=== PATIENT | male | born 1935 | race Caucasian/White ===

== ENCOUNTER 2019-08-23 10:55 | Outpatient (CLI) | payer MEDICARE, SELFPAY ==
--- NOTE | ~2019-08-23 | XR_ITS ---
EXAMINATION: XR chest 2V 08/23/2019 11:24 INDICATION: Coronary artery disease. Pacemaker implant. PROCEDURE: 2 view chest COMPARISON: 01/12/2018 FINDINGS: The lungs are clear. The cardiomediastinal silhouette is within normal limits. Status post median sternotomy for CABG. There is a prosthetic heart valve. Pacemaker leads are stable. The lungs are hyperinflated which is consistent with, but not diagnostic of chronic obstructive pulmonary dise ase. There are no pleural effusions. There is no pneumothorax suspected. IMPRESSION: 1: NO ACUTE CARDIOPULMONARY DISEASE. Reviewed, dictated and finalized at location A.
== END 2019-08-23 10:56 | disposition home or self-care (01) ==
PROVIDERS: PCP Internal Medicine; Visit Provider Internal Medicine Cardiovascular Disease
DX: I25.118 Atherosclerotic heart disease of native coronary artery with other forms of angina pectoris (principal); R06.00 Dyspnea, unspecified
CPT/HCPCS: 71046

== ENCOUNTER 2019-09-19 00:59 | Outpatient (CLI) | payer MEDICARE, SELFPAY ==
[2019-09-19 20:03] LABS: SARS-CoV-2 RNA PCR Negative
== END 2019-09-19 01:00 | disposition home or self-care (01) ==
LOC: ANHCOVIDDT 01:01
PROVIDERS: PCP Internal Medicine; Visit Provider Internal Medicine Cardiovascular Disease
DX: Z01.818 Encounter for other preprocedural examination (principal); Z11.59 Encounter for screening for other viral diseases
CPT/HCPCS: 87635; C9803; U0003

== ENCOUNTER 2019-09-21 06:58 | Day surgery (SDC) | payer MEDICARE, SELFPAY ==
[2019-09-21] VITALS (16 sets, daily range): BP systolic 121–163; BP diastolic 56–84; PULSE 50–71; RESP 8–22; TEMP 36.4–36.9; O2SAT 97–100; BMI 21.6
[2019-09-21 07:31] LABS: Basophils Percent Auto 0.5 % (0.2-1.2); Eosinophils Absolute Auto 0.2 K/mm3 (0-0.3); Eosinophils Percent Auto 2.7 % (0-4.4); Hematocrit 43.9 % (42.0-52.0); Hemoglobin 14.5 g/dL (14.0-18.0); Immature Granulocyte Absolute 0.01 K/mm3 (0.00-0.031); Immature Granulocyte Percent A 0.2 % (0-0.5); Lymphocytes Absolute Auto 1.44 K/mm3 (0.9-3.2); Lymphocytes Percent Auto 24.6 % (18.3-44.2); Mean Corpuscular Hemoglobin 30.8 pg (26-34); Mean Corpuscular Volume 93.2 fl (80-100); Mean Platelet Volume 11.1 fl (7.4-10.4); Monocytes Absolute Auto 0.5 K/mm3 (0.1-0.6); Monocytes Percent Auto 8.2 % (2.6-8.5); Neutrophils Absolute Auto 3.7 K/mm3 (1.3-6.7); Neutrophils Percent Auto 63.8 % (45.5-73.1); Platelet Count Result 161 k/mm3 (150-375); Red Blood Count 4.71 M/mm3 (4.6-6.20); Red Cell Distribution Width 12.9 % (11.5-14.5); White Blood Count 5.9 K/mm3 (4.5-10.0)
[2019-09-21 07:43] LABS: Blood Urea Nitrogen 20 mg/dL (9-20); Calcium 10.5 mg/dL (8.4-10.2); Carbon Dioxide 27 mmol/L (22-30); Chloride 101 mmol/L (98-107); Estimated CRCL calculation 71 ml/min; Estimated Glomerular Filt Rate > 60; Glucose 116 mg/dL (75-110); INR 1.1; Potassium 4.6 mmol/L (3.4-5.0); Prothrombin Time 13.9 Seconds (11.1-14.7); Sodium 137 mmol/L (137-145)
--- NOTE | 2019-09-21 08:47 | WPDHPUPDATE1 ---
History and Physical Update Update Date/Time: 09/21/19 08:47 History and Physical has been reviewed, including an updated exam of the patient. There are NO changes in the patient's condition. Risks, benefits, and alternatives have been discussed and questions answered. Patient agrees to proceed with procedure.
--- NOTE | 2019-09-21 08:47 | WPDMODSED ---
Moderate Sedation Note-Pt Data Patient Data Diagnosis: Abnormal stress test, CAD, progressive exertional dyspnea and fatigue Present Complaint: none Procedure to be performed/Plan: left heart catheterization with selective left and right coronary angiography with left ventriculography and hemodynamics and possible percutaneous intervention and stent implantation. Allergies Allergy/AdvReac Type Severity Reaction Status Date / Time atorvastatin Allergy Unknown Verified 08/26/12 13:11 lisinopril Allergy Unknown Cough Verified 01/11/18 09:56 simvastatin Allergy Unknown Verified 09/02/12 12:45 Home Medications Medication Instructions Recorded Confirmed Type losartan 25 mg tablet 25 mg PO DAILY tablet 05/18/19 09/21/19 History metformin 500 mg tablet 500 mg PO BID 05/18/19 09/21/19 History pravastatin 40 mg tablet 40 mg PO DAILY 05/18/19 09/21/19 History warfarin 7.5 mg tablet 8.5 mg PO QTUTHSU tablet 05/18/19 09/21/19 History ascorbic acid (vitamin C) 500 mg PO DAILY 09/21/19 09/21/19 History cholecalciferol (vitamin D3) 25 mcg PO DAILY 09/21/19 09/21/19 History multivitamin 1 tablet PO DAILY 09/21/19 09/21/19 History warfarin 10.75 mg PO QMWFSA 09/21/19 09/21/19 History Current Medications: Active Medications Sodium Chloride (Normal Saline Iv) 500 mls @ 100 mls/hr IV CONT .Q5H SANDRITA Sedation/Anesthesia: No previous sedation/anesthesia problems (including family history). [facility] Past Medical History Medical History CAD (coronary artery disease) Metabolic syndrome Mixed hyperlipidemia Sick sinus syndrome Surgical History Surgical History Status cardiac pacemaker Family History Family History Father Family history of coronary artery disease Mother Family history of coronary artery disease Social History Social History Smoking status: Never smoker Alcohol intake: current Mod Sed Physical Exam Physical Exam Pre Procedural Exam: Normal: Appearance, Eyes, Ears, Nose, Neck ( supple, normal range of motion), Throat ( posterior hypopharynx clear, nonerythematous), Airway ( normal anatomy, no obstruction), Lungs ( Clear to auscultation bilaterally), Heart Size, Heart Rate, Heart Rhythm, Neuro Exam, Abdomen, Liver, Kidneys and Extremities and Variation: Skin ( healed median sternotomy scar, palpable pacemaker left anterior chest wall.) Hours since solid foods: 12 Hours since liquid intake: 12 Internal Medicine - PN: Obj Da Vital Signs Vital Signs: Vital Signs - 24 hr 09/21/19 07:35 Temperature 36.9 C Pulse Rate 61 Respiratory Rate 16 Blood Pressure 152/72 H Pulse Oximetry 100 Meds/Results Medications: Active Medications Generic Name Dose Route Start Last Admin Trade Name Freq PRN Reason Stop Dose Admin Sodium Chloride 500 mls @ 100 mls/hr 09/21/19 06:05 Normal Saline Iv IV CONT .Q5H SANDRITA Labs CBC & Chem 7: 09/21/19 07:26 09/21/19 07:26 Labs: Laboratory Results - last 24 hr 09/21/19 09/21/19 09/21/19 07:26 07:26 07:26 WBC 5.9 RBC 4.71 Hgb 14.5 Hct 43.9 MCV 93.2 MCH 30.8 MCHC 33.0 RDW 12.9 Plt Count 161 MPV 11.1 H Immature Gran % (Auto) 0.2 Neut % (Auto) 63.8 Lymph % (Auto) 24.6 Ward % (Auto) 8.2 Eos % (Auto) 2.7 Baso % (Auto) 0.5 Lymph # (Auto) 1.44 Ward # (Auto) 0.5 Eos # (Auto) 0.2 Baso # (Auto) 0.0 Abs Immat Gran (auto) 0.01 Absolute Neuts (auto) 3.7 Absolute Nucleated RBC 0.0 Nucleated RBC % 0.0 PT 13.9 INR 1.1 Sodium 137 Potassium 4.6 Chloride 101 Carbon Dioxide 27 BUN 20 Creatinine 0.80 Estim Creat Clear Calc 71 Estimated GFR > 60 Glucose 116 H Calcium 10.5 H ASA Classification/Sedation
--- NOTE | 2019-09-21 08:50 | PM.PROC ---
Procedure Note - Detailed Date of procedure: 09/21/19 Pre-op diagnosis: Abnormal Stress Test, Chest Pain, Dyspnea On Exert Post-op diagnosis: same Procedure performed: left heart catheterization with selective left and right coronary angiography Description of procedure: BRIEF HISTORY OF PRESENT ILLNESS: Patient is a pleasant 83-year-old male with a history of bioprosthetic aortic valve replacement, nonobstructive CAD, sick sinus syndrome status post pacemaker with progressive fatigue, exertional dyspnea and chest pain who underwent noninvasive ischemic evaluation which did not reveal significant focal perfusion abnormality, EF 54% but significant transient ischemic dilatation at stress concerning for balanced ischemia. Due to ongoing patient concerns and stress test results he was referred for left heart catheterization for delineation of his coronary anatomy. PROCEDURES PERFORMED: 1. Left heart catheterization 2. Selective left and right coronary angiography 3. Left ventriculography and hemodynamics 4. Moderate/conscious sedation administration CATHETERS UTILIZED: Left coronary system- 5 Mexican JL4 catheter Right coronary system- 5 Mexican JR4 catheter Left ventriculography and hemodynamics- not performed PROCEDURE IN DETAIL: After verbal and written informed consent was obtained the patient, risks, benefits, and alternatives explained in detail the patient agreed to proceed with the plan of care as outlined above. The patient was subsequently brought to the cardiac catheterization lab, placed on the cardiac catheterization table, and prepped and draped in the usual sterile fashion. Utilizing approximately 10cc of 1% subcutaneous Lidocaine, the right groin was then locally anesthetized. Utilizing the modified Seldinger technique, a 5 Mexican arterial vascular access sheath was inserted in the right common femoral artery easily and without complications. Of note, initial attempt resulted in excellent backflow but inability to advance the guidewire. It was surmised we were in a side branch and as such access needle removed and manual pressure held for over 7 minutes with excellent hemostasis. Second attempt review able to advance guidewire without any resistance and successful placement of the 5 [place] arterial vascular access sheath. Selective right femoral angiography was then performed with saline contrast mix injected through the side-arm port which revealed the arteriotomy site to be just below the mid point of the femoral head well above the bifurcation. There is no evidence of dissection, high-grade stenosis, significant plaquing, or contrast hang up. excellent flow was observed in the right common femoral artery. Through this access, coronary angiography was subsequently obtained in multiple standard re-projections. Left ventriculography was not performed due to presence of known bioprosthetic aortic valve replacement. The vascular access sheath and angiographic catheters were flushed before and after catheter exchanges. At the conclusion of the diagnostic portion of the procedure, all angiographic guidewires and catheters were removed and the 5 Mexican arterial vascular access sheath was then pulled and satisfactory hemostasis was achieved using manual compression. There no complications noted at the conclusion of the diagnostic portion of the study. MODERATE SEDATION/ANESTHESIA ADMINISTRATION: Patient reports no prior problems with sedation/anesthesia. Please see pre-sedation noted for physical examination documentation. Sedation start time was 0906 and end time was 0946 for a total intra-service/procedure face-face time of 40 minutes. A total of 2 mg intravenous Versed and a total of 50 mcg intravenous Fentanyl was administered for moderate sedation. Moderate sedation was administered by qualified/certified observer Cristin Givens RN under my supervision with intra-procedure [id number] observation and management throughout the
--- NOTE | 2019-09-21 14:57 | SUR.PHASEII ---
1445-pt up to the restroom. Groin soft and non-tender, no evidence of bleeding or hematoma noted before or after rising. Resting quietly. Will continue to monitor.
--- NOTE | 2019-09-21 16:06 | SUR.PHASEII ---
1545-pt given D/C orders and instructions. Questions answered and verbalized understanding. AOx4. Groin soft and non-tender, no evidence of bleeding or hematoma noted. Strong right pedal pulse noted. PIV removed. Taken via wheelchair to waiting vehicle. No distress noted or verbalized at time of departure.
== END 2019-09-21 15:45 | disposition home or self-care (01) ==
PROVIDERS: PCP Internal Medicine; Visit Provider Internal Medicine Cardiovascular Disease
PROC: (CPT 93454; principal; 2019-09-21 08:30)
DX: I25.10 Atherosclerotic heart disease of native coronary artery without angina pectoris (principal); R94.39 Abnormal result of other cardiovascular function study; R07.9 Chest pain, unspecified; R06.09 Other forms of dyspnea; Z95.2 Presence of prosthetic heart valve; Z95.0 Presence of cardiac pacemaker; E78.2 Mixed hyperlipidemia; E88.81 Metabolic syndrome and other insulin resistance; Z79.84 Long term (current) use of oral hypoglycemic drugs; Z79.01 Long term (current) use of anticoagulants
CPT/HCPCS: 36415; 80048; 85025; 85610; 93454; C1887; C1894; J0360; J0583; J1644; J2250; J3010

== ENCOUNTER 2019-10-31 14:41 | Outpatient (CLI) | payer MEDICARE, SELFPAY ==
--- NOTE | ~2019-10-31 | CT_ITS ---
EXAMINATION: CT chest abdomen pelvis w con DATE: 10/31/2019 16:16 INDICATION: Personal history of nicotine dependence. TECHNIQUE: Computed tomography (CT) of the chest, abdomen, and pelvis was performed with 100 mL Omnip aque-350 intravenous contrast. Automated exposure control and iterative reconstruction technique were employed. The dose-length product was 586.13 mGy-cm. COMPARISON: CT abdomen and pelvis dated 09/01/2014 FINDINGS: CHEST CT: Mild emphysema at the apices. Minimal dependent atelectasis in the bilateral lower lobes. No pneumoni a, pulmonary edema or pleural effusion. Small calcified nodules in the left and right lungs consisten t with old granulomatous disease. Heart size is normal. No pericardial effusion. Postoperative change of prior median sternotomy and aortic valve repair. Thoracic aorta is normal in caliber with no diss ection. There is also a dual-lead cardiac pacemaker with lead tips at the right atrial appendage and at the apex of the right ventricle. No pathologically enlarged thoracic lymphadenopathy. There are br idging osteophytes at multiple levels in the spine, consistent with diffuse idiopathic skeletal hyper ostosis (DISH). ABDOMEN/PELVIS CT: 9 mm cyst in the right hepatic lobe. Gallbladder, pancreas and bilateral adrenal glands are normal. S plenic calcifications consistent with old granulomatous disease. No interval change in a couple subce ntimeter low-attenuation splenic lesions most likely small cysts or hemangiomas. Bilateral renal cyst s measuring up to 4.7 cm on the right and 6.7 cm on the left. Bladder is normal. There is moderate co lonic diverticulosis with a sigmoid predominance. There is no adjacent inflammatory change to suggest diverticulitis. No bowel obstruction. Postoperative change of prior prostatectomy and pelvic lymph n ode dissection. Extensive calcified calcification of the vas deferens which can be seen with diabetes . No free intraperitoneal gas or fluid. No pathologically enlarged abdominal or pelvic lymphadenopath y. L4 hemangioma. Calcified loose bodies surrounded by small amount of fluid in the left iliopsoas bu rsa. IMPRESSION: 1. Mild emphysema. No acute cardiopulmonary disease. 2. No acute intra-abdominal/pelvic process. 3. Diverticulosis. 4. Postoperative changes detailed above. Reviewed, dictated and finalized at location A.
[2019-10-31 15:58] LABS: Erythrocyte Sedimentation Rate 11 mm/hr (0-20)
[2019-10-31 16:07] LABS: Estimated Glomerular Filt Rate > 60
[2019-10-31 16:31] LABS: CRP < 0.5 mg/dL (<1.0)
[2019-10-31 16:59] LABS: Prostate Specific Antigen < 0.1 ng/mL (< OR = 4.0)
== END 2019-10-31 14:42 | disposition home or self-care (01) ==
PROVIDERS: PCP Internal Medicine; Visit Provider Internal Medicine
DX: R63.4 Abnormal weight loss (principal); Z85.46 Personal history of malignant neoplasm of prostate; J43.9 Emphysema, unspecified; K57.90 Diverticulosis of intestine, part unspecified, without perforation or abscess without bleeding
CPT/HCPCS: 36415; 71260; 74177; 84153; 85652; 86140; 87522; Q9967

== ENCOUNTER 2020-03-07 09:37 | Outpatient (CLI) | payer MEDICARE, SELFPAY ==
--- NOTE | ~2020-03-07 | US_ITS ---
EXAMINATION: US carotid duplex BI EXAM DATE: 03/07/2020 10:30 INDICATION: CAD of [place] artery of heart with stable angina pectoris. TECHNIQUE: Grayscale, color and pulsed Doppler images of the cervical carotid arteries were obtained . The degree of vessel stenosis is placed in one of the following categories: normal, <50% stenosis, 50-69% stenosis, >=70% stenosis but less than near-occlusion, near-occlusion, or occlusion. Note that percent stenosis relative to normal distal artery lumen diameter is indirectly measured from velocit y measurements as described by Andre, et al. Radiology 2003; 229:340-346. Comparison is made to prior examination from 11/27/17. FINDINGS: RIGHT SIDE: Right common carotid artery peak systolic velocity (PSV in cm/s): 68 Right bulb/internal carotid artery peak systolic velocity (PSV in cm/s): 113 Right internal carotid artery end diastolic velocity (EDV in cm/s): 26 Right ICA/CCA peak systolic ratio: 1.7 Right external carotid artery peak systolic velocity (PSV in cm/s): 87 Right vertebral artery antegrade flow: yes There is mild carotid bulb plaque. Velocity and Doppler waveforms in the common and internal carotid arteries is normal. LEFT SIDE: Left common carotid artery peak systolic velocity (PSV in cm/s): 87 Left bulb/internal carotid artery peak systolic velocity (PSV in cm/s): 67 Left internal carotid artery end diastolic velocity (EDV in cm/s): 17 Left ICA/CCA peak systolic ratio: 0.9 Left external carotid artery peak systolic velocity (PSV in cm/s): 91 Left vertebral artery antegrade flow: yes There is mild carotid bulb plaque. Velocity and Doppler waveforms in the common and internal carotid arteries is normal. IMPRESSION: 1. Less than 50 percent stenosis in the right internal carotid artery. 2. Less than 50 percent stenosis in the left internal carotid artery. > Reviewed, dictated and finalized at location B. E OPERATOR
== END 2020-03-07 09:38 | disposition home or self-care (01) ==
LOC: ANHIMG 09:43
PROVIDERS: PCP Internal Medicine; Visit Provider Internal Medicine Cardiovascular Disease
DX: I48.0 Paroxysmal atrial fibrillation (principal); I25.118 Atherosclerotic heart disease of native coronary artery with other forms of angina pectoris; I65.23 Occlusion and stenosis of bilateral carotid arteries
CPT/HCPCS: 93880

== ENCOUNTER 2020-03-23 02:09 | Outpatient (CLI) | payer MEDICARE, SELFPAY ==
[2020-03-23 17:23] LABS: SARS-CoV-2 RNA PCR Negative
== END 2020-03-23 02:10 | disposition home or self-care (01) ==
LOC: ANHCOVIDDT 02:09
PROVIDERS: PCP Internal Medicine; Visit Provider Internal Medicine Cardiovascular Disease
DX: Z01.812 Encounter for preprocedural laboratory examination (principal); Z20.822 Contact with and (suspected) exposure to COVID-19
CPT/HCPCS: C9803; U0003

== ENCOUNTER 2020-03-26 01:43 | Day surgery (SDC) | payer MEDICARE, SELFPAY ==
[2020-03-23 16:44] VITALS: BMI 22.8
[2020-03-26] VITALS (8 sets, daily range): BP systolic 138–195; BP diastolic 72–89; PULSE 62–75; RESP 13–23; TEMP 36.4–36.6; O2SAT 96–100; BMI 22.6
--- NOTE | 2020-03-26 08:45 | WPDHPUPDATE1 ---
History and Physical Update Update Date/Time: 03/26/20 0845 History and Physical has been reviewed, including an updated exam of the patient. There are NO changes in the patient's condition. Risks, benefits, and alternatives have been discussed and questions answered. Patient agrees to proceed with procedure.
--- NOTE | 2020-03-26 09:11 | P.SEDATION_ITS ---
Moderate Sedation Note-Pt Data Patient Data Diagnosis: amaurosis fugax, bioprosthetic aortic valve Present Complaint: none Procedure to be performed/Plan: Transesophageal Echocardiogram Allergies Allergy/AdvReac Type Severity Reaction Status Date / Time atorvastatin Allergy Intermediate muscle Verified 03/23/20 16:35 aches lisinopril Allergy Intermediate Cough Verified 03/23/20 16:35 simvastatin Allergy Intermediate muscle Verified 03/23/20 16:35 aches Home Medications Medication Instructions Recorded Confirmed Type pravastatin 40 mg tablet 40 mg PO DAILY 05/18/19 03/23/20 History warfarin 7.5 mg tablet 8.5 mg PO QTUTHSU tablet 05/18/19 03/23/20 History ascorbic acid (vitamin C) 500 mg PO DAILY 09/21/19 03/23/20 History cholecalciferol (vitamin D3) 25 mcg PO DAILY 09/21/19 03/23/20 History multivitamin 1 tablet PO DAILY 09/21/19 03/23/20 History warfarin 11.25 mg PO QMWFSA 09/21/19 03/23/20 History losartan 25 mg tablet 25 mg PO DAILY tablet 10/11/19 03/23/20 History metformin 500 mg tablet 1,000 mg PO BID tablet 10/11/19 03/23/20 History citalopram 10 mg tablet 10 mg PO DAILY 90 Days #90 tablet 11/07/19 03/23/20 Rx aspirin 81 mg PO DAILY 03/23/20 03/23/20 History vitamin B complex [B 1 tablet PO DAILY 03/23/20 03/23/20 History Complex-Vitamin B12] Current Medications: see list Sedation/Anesthesia: No previous sedation/anesthesia problems (including family history). [facility] [place] Past Medical History Medical History CAD (coronary artery disease) Metabolic syndrome Mixed hyperlipidemia Sick sinus syndrome Stress disorder, acute Surgical History Surgical History Status cardiac pacemaker Family History Family History Father Family history of coronary artery disease Mother Family history of coronary artery disease Social History Social History Smoking status: Never smoker Alcohol intake: current Mod Sed Physical Exam Physical Exam Pre Procedural Exam: Normal: Appearance, Eyes, Ears, Nose, Neck (supple, normal range of motion), Throat (psoterior hypopharynx clear and nonerythematous), Airway (no obstruction, normal anatomy), Lungs (CTA bilaterally), Heart Size, Heart Rate (RRR), Heart Rhythm, Neuro Exam, Abdomen, Liver, Kidneys, Extremities and Skin Hours since solid foods: 12 Hours since liquid intake: 12 Internal Medicine - PN: Obj Da Vital Signs Vital Signs: Vital Signs - 24 hr 03/26/20 07:45 03/26/20 08:45 03/26/20 08:55 Temperature 36.6 C Pulse Rate 62 67 70 Respiratory Rate 14 23 H 21 H Blood Pressure 140/75 162/79 H 166/80 H Pulse Oximetry 99 97 100 03/26/20 09:00 03/26/20 09:05 Temperature Pulse Rate 70 62 Respiratory Rate 22 H 15 Blood Pressure 195/89 H 177/83 H Pulse Oximetry 100 100 ASA Classification/Sedation ASA Classification/Sedation ASA Class: III Emergent: No Risks: Risks, benefits and alternatives explained and patient/family accepted plan for sedation. Patient re-evaluated immediately prior to se
--- NOTE | 2020-03-26 09:17 | WPDTEECHO ---
[facility] TransEsophageal Echocardiogram Date of procedure: 03/26/20 Procedure Type: Transespohageal Echocardiogram Diagnosis: Amaurosis fugax, bioprosthetic aortic valve replacement Indications: Amaurosis, fugax, s/p AVR Image Quality: Good Findings: Brief history present illness: Patient is a pleasant 84-year-old male past medical history significant for nonobstructive CAD, hypertension, paroxysmal atrial fibrillation, sick sinus syndrome, status post 25 mm bioprosthetic aortic valve with episode of amaurosis fugax involving the right eye with unremarkable carotid Dopplers referred for transesophageal echocardiogram for further evaluation for cardiac source of emboli. Patient has been therapeutic on warfarin Procedure in detail: After verbal and written informed consent was obtained the patient risks, benefits, and alternatives explained in detail the patient agreed to proceed with the plan of care as outlined above. The patient was evaluated at bedside in the [facility] procedure room. The posterior oropharynx, neck, and jaw angle all within normal limits on examination. Lungs were clear to auscultation. See pre-sedation note for further details The patient was then placed in the appropriate 30 to 45 degree angle supine position at a slight left lateral decubitus position. Patient was monitored throughout the study with telemetry, oxygen saturation, end-tidal CO2 monitoring, blood pressure, heart rate, and respirations. The posterior hypopharynx was then locally anesthetized using repeated administration of Hurricaine spray as well as gargled viscous lidocaine. After local anesthetic of the posterior hypopharynx was achieved and the oral bite block placed, moderate sedation was administered. After confirmation of adequate moderate sedation, the transesophageal echocardiogram probe was advanced through the oral bite block into the posterior hypopharynx and into the esophagus easily and without complication. Multiple, multiplanar echocardiographic images were obtained in multiple standard re- projections. Pulsed wave, continuous-wave, and color-flow Doppler were utilized in conjunction with this study. At the conclusion of the study, the transesophageal echocardiogram probe was removed easily and without complication. The patient tolerated the procedure well without difficulty. Patient was in sinus rhythm throughout the study. Moderate Sedation/Anesthesia administration: Patient reports no prior problems with sedation/anesthesia. Please see pre-sedation noted for physical examination documentation. As noted above, after adequate local anesthesia of the posterior hypopharynx was achieved, a total of 3 mg intravenous Versed and a total of 75 mcg intravenous Fentanyl in multiple divided doses was administered for moderate sedation. Sedation start time was 0850 and end time was 0908 for a total intra-service/procedure face-face time of 18 minutes. Sedation was administered by a qualified/certified observer Kim Scherer RN under my supervision with intra-procedure [id number] observation and management throughout the entirety of the procedure. There were no other issues or complications and patient tolerated the procedure well. See post-anesthesia documentation. Findings: Left ventricular size and systolic function within normal limits without wall motion abnormalities with ejection fraction of 65%. Right ventricular size and systolic function within normal limits. Linear artifact seen in the right ventricle and right atrium consistent with pacemaker lead. While not well visualized in all views no mobile thrombi identified on observed portions of the leads. Mild biatrial enlargement is observed. Interatrial septum is anatomically normal without evidence of shunt with color-flow Doppler nor with injection of agitated saline with and without Valsalva. Mitral valve is anatomically normal with preserved leaflet excursion and mild regurgitation with at least 2
--- NOTE | 2020-03-26 10:10 | SUR.OPER ---
0955 D/c instructions reviewed with patient, questions answered. Iv d/c'd, cath intact, pressure applied. 1010 Pt transported via wheelchair to [facility] where his drove him home in a private vehicle.
== END 2020-03-26 10:00 | disposition home or self-care (01) ==
PROVIDERS: PCP Internal Medicine; Visit Provider Internal Medicine Cardiovascular Disease
PROC: (CPT 93312; principal; 2020-03-26 08:30)
DX: G45.3 Amaurosis fugax (principal); Z95.3 Presence of xenogenic heart valve; I25.10 Atherosclerotic heart disease of native coronary artery without angina pectoris; I10 Essential (primary) hypertension; I48.0 Paroxysmal atrial fibrillation; I49.5 Sick sinus syndrome; Z79.01 Long term (current) use of anticoagulants; Z79.82 Long term (current) use of aspirin; Z79.84 Long term (current) use of oral hypoglycemic drugs; E78.2 Mixed hyperlipidemia; E88.81 Metabolic syndrome and other insulin resistance; Z95.0 Presence of cardiac pacemaker; I34.0 Nonrheumatic mitral (valve) insufficiency; I36.1 Nonrheumatic tricuspid (valve) insufficiency
CPT/HCPCS: 93312; 93320; 93325; J2250; J3010; J7040

== ENCOUNTER 2023-01-05 00:17 | Day surgery (SDC) | payer MEDICARE, SELFPAY ==
[2022-12-29 15:06] VITALS: BMI 22.8
--- NOTE | 2023-01-02 15:03 | PM.HPGS ---
History of Present Illness History of Present Illness Consent: Risks, benefits, and alternatives have been discussed and questions answered. Patient agrees to proceed with procedure. Chief complaint: neoplasm screening Narrative: Erich Aguirre is a 87 year old male referred for colon cancer screening. Review of Systems Review of Systems: All systems reviewed & are unremarkable except as noted in HPI and below PMFSH Past Medical History Medical History CAD (coronary artery disease) Metabolic syndrome Mixed hyperlipidemia Sick sinus syndrome Stress disorder, acute Surgical History Surgical History Status cardiac pacemaker Family History Family History Father Family history of coronary artery disease Mother Family history of coronary artery disease Social History Social History Years smoked: 10 Smoking status: Former smoker Tobacco type: cigarettes Alcohol intake: current Substance use: never Substance use type: does not use Living arrangements: with family Spiritual care concerns: No Meds Home Medications and Allergies Home Medications Medication Instructions Recorded Confirmed Type losartan 25 mg tablet 25 mg PO DAILY 10/11/19 12/29/22 History aspirin 81 mg tablet 81 mg PO DAILY 03/23/20 12/29/22 History Cinnamon 0.5 tsp PO DAILY 12/29/22 12/29/22 History cyanocobalamin (vitamin B-12) 1,000 mcg PO DAILY 12/29/22 12/29/22 History 1,000 mcg tablet loratadine 10 mg tablet (Allergy 10 mg PO DAILY 12/29/22 12/29/22 History Relief (loratadine)) magnesium 250 mg tablet 250 mg PO DAILY 12/29/22 12/29/22 History metformin 1,000 mg tablet 1,000 mg PO BID 12/29/22 12/29/22 History metoprolol succinate 25 mg 25 mg PO DAILY 12/29/22 12/29/22 History tablet,extended release 24 hr rivaroxaban 20 mg tablet (Xarelto) 20 mg PO QPM 12/29/22 01/05/23 History rosuvastatin 20 mg tablet 20 mg PO DAILY 12/29/22 12/29/22 History vit C 250 mg-vit E 90 mg-zinc 40 1 tablet PO BID 12/29/22 12/29/22 History mg-copper 1 [id number] capsule (PreserVision AREDS-2) Allergies Allergy/AdvReac Type Severity Reaction Status Date / Time lisinopril Allergy Intermediate Cough Verified 01/05/23 07:31 pravastatin Allergy Intermediate Muscle Pain Verified 01/05/23 07:31 simvastatin Allergy Intermediate muscle Verified 01/05/23 07:31 aches Exam Resp: Auscultation: clear to auscultation bilaterally Cardio: Rate: regular rate Rhythm: regular rhythm GI: GI Palp: Yes Soft to palpation and No Tenderness to palpation present (GI) Assessment and Plan Assessment and plan (1) Colon cancer screening: Code(s): Z12.11 - Encounter for screening for malignant neoplasm of colon Status: Acute Assessment and Plan: Colonoscopy with possible biopsy or polypectomy or cautery or injection of substances.
[2023-01-05 07:32] VITALS: BP 170/72; PULSE 63; RESP 18; TEMP 36.1; O2SAT 100
[2023-01-05] MEDS: LACTATED RINGERS 1,000 ML 150 ML IV CONT (07:49)
[2023-01-05] MEDS: GENTAMICIN 80MG/SOD CHL 50 ML 80 MG/50 ML BAG 100 MG IVPB (07:49)
[2023-01-05 07:50] LABS: Glucose Point of Care 92 mg/dl (65-105)
[2023-01-05] MEDS: AMPICILLIN 2 GM/NS 100 ML 2 GM/100 ML BAG IVPB (08:14)
--- NOTE | 2023-01-05 08:19 | WPDANESEPPF ---
Anes - Initial Pre Proc Eval Procedure: Operation Date: 01/05/23 08:30 Proposed Procedures p Screening Colonoscopy - Dinh Mejia MD Date/Time: 01/05/23 08:19 Surgeon: Dinh Mejia MD Pre Op Diagnosis: neoplasm screening Patient Data Age: 87 Gender: M Height: 1.93 m Weight: 81.4 kg Last Vital Signs Temp 97 F L 01/05/23 07:32 Pulse 63 01/05/23 07:32 Resp 18 01/05/23 07:32 BP 170/72 H 01/05/23 07:32 Pulse Ox 100 01/05/23 07:32 O2 Del Method Room Air 01/05/23 07:32 Allergies Allergy/AdvReac Type Severity Reaction Status Date / Time lisinopril Allergy Intermediate Cough Verified 01/05/23 07:31 pravastatin Allergy Intermediate Muscle Pain Verified 01/05/23 07:31 simvastatin Allergy Intermediate muscle Verified 01/05/23 07:31 aches Home Medications Medication Instructions Recorded Confirmed Type losartan 25 mg tablet 25 mg PO DAILY 10/11/19 12/29/22 History aspirin 81 mg tablet 81 mg PO DAILY 03/23/20 12/29/22 History Cinnamon 0.5 tsp PO DAILY 12/29/22 12/29/22 History cyanocobalamin (vitamin B-12) 1,000 mcg PO DAILY 12/29/22 12/29/22 History 1,000 mcg tablet loratadine 10 mg tablet (Allergy 10 mg PO DAILY 12/29/22 12/29/22 History Relief (loratadine)) magnesium 250 mg tablet 250 mg PO DAILY 12/29/22 12/29/22 History metformin 1,000 mg tablet 1,000 mg PO BID 12/29/22 12/29/22 History metoprolol succinate 25 mg 25 mg PO DAILY 12/29/22 12/29/22 History tablet,extended release 24 hr rivaroxaban 20 mg tablet (Xarelto) 20 mg PO QPM 12/29/22 01/05/23 History rosuvastatin 20 mg tablet 20 mg PO DAILY 12/29/22 12/29/22 History vit C 250 mg-vit E 90 mg-zinc 40 1 tablet PO BID 12/29/22 12/29/22 History mg-copper 1 af-[id number] capsule (PreserVision AREDS-2) Laboratory Tests 01/05/23 07:47 POC Capillary Glucose 92 mg/dl (65-105) Patient hx anesthesia problems: none Family hx anesthesia problems: none Results Review: All pre-operative results and documents have been reviewed as part of the pre-operative evaluation. [facility] Past Medical History Medical History CAD (coronary artery disease) Metabolic syndrome Mixed hyperlipidemia Sick sinus syndrome Stress disorder, acute Surgical History Surgical History Status cardiac pacemaker Family History Family History Father Family history of coronary artery disease Mother Family history of coronary artery disease Social History Social History Years smoked: 10 Smoking status: Former smoker Tobacco type: cigarettes Alcohol intake: current Substance use: never Substance use type: does not use Living arrangements: with family Spiritual care concerns: No Anes - Eval Final PreProcedure Day of Procedure 01/05/23 08:19 Patient weight: normal Heart: regular rate and rhythm Lungs: clear to auscultation Airway: Mallampati scale class II Neurological: alert and oriented Last oral intake: >/= 8 hours ASA classification: III Emergent: no Anesthetic plan: proceed Anesthesia type and monitoring: general GIVS and standard monitoring Results Review: All pre-operative results and documents have been reviewed as part of the pre-operative evaluation. Informed Consent: The patient's anesthetic plan and its attendant risks and benefits were discussed with the patient/family/POA. Questions were solicited and answers provided to the satisfaction of the patient/family/POA.
[2023-01-05 08:45] VITALS: BP 140/73; PULSE 64; RESP 20; O2SAT 100
[2023-01-05 08:55] VITALS: BP 144/78; PULSE 66; RESP 18; O2SAT 100
[2023-01-05 09:05] VITALS: BP 168/87; PULSE 64; RESP 18; O2SAT 98
== END 2023-01-05 09:17 | disposition home or self-care (01) ==
PROVIDERS: PCP Nurse Practitioner Family; Visit Provider Internal Medicine Gastroenterology
PROC: 0DJD8ZZ Inspection of Lower Intestinal Tract, Via Natural or Artificial Opening Endoscopic (ICD-10-PCS; CPT 45378; principal; 2023-01-05 08:30)
DX: Z12.11 Encounter for screening for malignant neoplasm of colon (principal); K64.8 Other hemorrhoids; K57.30 Diverticulosis of large intestine without perforation or abscess without bleeding; I25.10 Atherosclerotic heart disease of native coronary artery without angina pectoris; E78.2 Mixed hyperlipidemia; Z95.0 Presence of cardiac pacemaker; Z87.891 Personal history of nicotine dependence; Z79.82 Long term (current) use of aspirin; Z79.84 Long term (current) use of oral hypoglycemic drugs; Z79.01 Long term (current) use of anticoagulants
CPT/HCPCS: G0121; 82948; J0290; J1580; J2704; J7120

== ENCOUNTER 2023-03-11 11:34 | Outpatient (CLI) | payer MEDICARE, SELFPAY ==
--- NOTE | 2023-03-11 17:14 | WPDPFTINT ---
PFT Procedure Performed PFT Procedure Performed Plethysmography (Lung Vol) Diffusing Cap (DLCO) Flow Vol Loop Spirometry w/o Bronchodil PFT Interpretation This is a pulmonary function test with spirometry, plethysmography and diffusing capacity. The test was performed and results interpreted in accordance with the 2019 and 2005 ATS/ERS Task Force guidelines respectively using the Global Lung Function Initiative-2012 reference equations. Patient demonstrated good effort and cooperation. Reproducibility criteria were met. The quality of the spirometry maneuver was Grade A. Findings: Spirometry: The contour the inspiratory and expiratory flow tracing are normal. The FVC is 4.68 L, 104% predicted. The FEV1 is 3.54 L, 109% predicted. The FEV1: FVC ratio 76%. Plethysmography: The total lung capacity is 8.29 L, 100% predicted. The functional residual capacity is 5.52 L, 120% predicted. The residual volume is 3.61 L, 116% predicted. Diffusing capacity: The diffusing capacity unadjusted for hemoglobin and carboxyhemoglobin is 20.6, 83% predicted. The diffusing capacity adjusted for alveolar volume is 3.46, 112% predicted. Impression: The spirometry is normal without evidence of an obstructive abnormality. The lung volumes are normal. The diffusing capacity is normal. There are no prior studies for comparison
== END 2023-03-11 11:35 | disposition home or self-care (01) ==
PROVIDERS: PCP Nurse Practitioner Family; Visit Provider Internal Medicine Cardiovascular Disease
DX: R06.09 Other forms of dyspnea (principal)
CPT/HCPCS: 94375; 94726; 94729

== ENCOUNTER 2025-03-10 14:11 | Emergency (ER) | payer MEDICARE, SELFPAY ==
[2025-03-10 14:46] VITALS: BP 145/76; PULSE 68; RESP 16; TEMP 36.3; O2SAT 99
--- NOTE | 2025-03-10 15:27 | ED.URI ---
HPI - URI/Sore Throat General Chief Complaint: Upper Respiratory Infection Stated Complaint: coughing, runny nose, headache Time Seen by Provider: 03/10/25 15:28 Source: patient, RN notes reviewed and old records reviewed Mode of arrival: ambulatory Limitations: no limitations History of Present Illness HPI Narrative: 89-year-old male presents to the [facility] with cough, significant runny nose and headache. No treatment prior to arrival. Symptoms started Thursday, 2 days ago. Patient's concerned that he might have COVID, had the same symptoms 1 year ago. Treatments prior to arrival: none Related Data Home Medications ?Medication ?Instructions ?Recorded ?Confirmed ?Last Taken ?Type losartan 25 mg tablet 25 mg PO DAILY 10/11/19 03/10/25 Unknown History aspirin 81 mg tablet 81 mg PO DAILY 03/23/20 03/10/25 Unknown History Cinnamon 0.5 tsp PO DAILY 12/29/22 03/10/25 Unknown History cyanocobalamin (vitamin B-12) 1,000 mcg PO DAILY 12/29/22 03/10/25 Unknown History 1,000 mcg tablet loratadine 10 mg tablet (Allergy 10 mg PO DAILY 12/29/22 03/10/25 Unknown History Relief (loratadine)) magnesium 250 mg tablet 250 mg PO DAILY 12/29/22 03/10/25 Unknown History metformin 1,000 mg tablet 1,000 mg PO BID 12/29/22 03/10/25 Unknown History metoprolol succinate 25 mg 25 mg PO DAILY 12/29/22 03/10/25 Unknown History tablet,extended release 24 hr rivaroxaban 20 mg tablet (Xarelto) 20 mg PO QPM 12/29/22 01/05/23 01/02/23 History rosuvastatin 20 mg tablet 20 mg PO DAILY 12/29/22 03/10/25 Unknown History vit C 250 mg-vit E 90 mg-zinc 40 1 tablet PO BID 12/29/22 03/10/25 Unknown History mg-copper 1 si-roogsf-fcpyzi capsule (PreserVision AREDS-2) folic acid 1 mg tablet 03/10/25 Unknown History Allergies Allergy/AdvReac Type Severity Reaction Status Date / Time lisinopril Allergy Intermediate Cough Verified 03/10/25 14:57 pravastatin Allergy Intermediate Muscle Pain Verified 03/10/25 14:57 simvastatin Allergy Intermediate muscle Verified 03/10/25 14:57 aches Review of Systems Review of Systems: All systems reviewed & are unremarkable except as noted in HPI and below Constitutional: Constitutional: Reports as per HPI ENT: Reports as per HPI Cardiovascular: Cardiovascular: Reports no additional cardiovascular complaints, Denies chest pain and Denies dyspnea Respiratory: Respiratory: Reports as per HPI, Denies chest congestion, Reports cough and Denies dyspnea Musculoskeletal: Musculoskeletal: Reports no additional musculoskeletal complaints Integumentary/Breasts: Skin/Breast: Reports system reviewed and no additional complaints, except as docu PMFSH Past Medical History Medical History Stress disorder, acute CAD (coronary artery disease) Sick sinus syndrome Mixed hyperlipidemia Metabolic syndrome Surgical History Surgical History Status cardiac pacemaker Family History Family History Father Family history of coronary artery disease Mother Family history of coronary artery disease Social History Social History Years smoked: 10 Smoking status: Former smoker Tobacco type: cigarettes Alcohol intake: current Substance use: never Substance use type: does not use Living arrangements: with family Spiritual care concerns: No Comments At the time of my signature, I reviewed and agree with the nursing past medical, surgical, social, and family history. There is no relevant family history pertinent to the patient complaint. Exam Const: General: cooperative, comfortable, no acute distress, well developed, alert, ill appearing chronically; not acutely and well nourished Nutritional Appearance: well nourished Orientation/consciousness: patient oriented x3 Limitations: no limitations HENMT: Head: normal to inspection Ears: hearing grossly normal bilaterally, external ears normal, TM's normal bilaterally, EAC's normal, mastoids normal and no periauricular adenopathy Face and sinus: other (Clear rhinorrhea) Mouth: Yes Normal oral and palatal mucosa present, Yes lip normal, Yes tongue normal and Yes moist mucous membranes Throat: posterior oropharynx normal, uvula midline, postnasal drainage and no uvular edema Eyes: General: appearance normal, both eyes and all related structures Alignment and Position: alignment normal Neck: Neck: normal visual inspection, full ROM, no lymphadenopathy and no meningeal signs Chest: Chest palpation & inspection: normal inspection of the chest Resp: Effort & Inspection: normal respiratory effort and able to speak in complete sentences Auscultation: clear to auscultation bilaterally, no crackles, no rales, no rhonchi and no wheezes Cardio: Rate: regular rate Skin: General skin exam: normal color and no rashes or lesions noted Neuro: General: patient oriented x3, gait normal, moves all extremities and no meningeal signs Cognition (Neuro): normal cognition Speech: normal speech Gait exam (Neuro): Normal gait present Extrem: General: normal to inspection, full ROM, capillary refill normal and normal gait Psych: Appearance: grossly normal and well kempt Mental Status: mental status grossly normal Speech and movement: Normal speech and movement present and Clear speech present Affect: normal affect Attitude: cooperative Course Course Level of Care: Express Care Visit Vital Signs Vital signs: Vital Signs Temperature 97.4 F L 03/10/25 14:46 Pulse Rate 68 03/10/25 14:46 Respiratory Rate 16 03/10/25 14:46 Blood Pressure 145/76 H 03/10/25 14:46 Pulse Oximetry 99 03/10/25 14:46 Temperature 97.4 F L 03/10/25 14:46 Pulse Rate 68 03/10/25 14:46 Respiratory Rate 16 03/10/25 14:46 Blood Pressure 145/76 H 03/10/25 14:46 Pulse Oximetry 99 03/10/25 14:46 reviewed MDM MDM Narrative Medical decision making narrative: Patient sitting in exam room. Patient is nontoxic, vitals stable. Patient presents with 2 day history of URI symptoms, runny nose is the most concerning. is concerned he might have COVID, same symptoms 1 year ago. No acute findings except for clear rhinorrhea and postnasal drainage Patient appropriate for outpatient treatment with close follow-up Discharge instructions reviewed with patient, as well as provided in writing per nursing staff. The instructions also include specific and strict return/GO TO THE ER as well as f/u information. All questions have been answered, and the patient deny any further questions with discharge and discharge plan. Some parts of this dictation were generated by voice recognition software and may contain typographical and/or grammatical inaccuracies. Differential Diagnosis Differential Diagnosis: Differential diagnostic considerations for upper respiratory infection include upper respiratory infection, croup, otitis media, sinusitis, viral infection, bronchitis, influenza, pharyngitis, strep, uvulitis.? Lab Data Labs: Lab Results 03/10/25 Range/Units 15:33 POC Influenza A Ag Negative (Negative) POC Influenza B Ag Negative (Negative) POC SARS CoV-2 Ag Negative (Negative) Reviewed Discharge Plan Discharge Clinical Impression: Upper respiratory infection, Rhinorrhea Patient Disposition: Home Condition: Stable Instructions: Antibiotic Form, Viral Syndrome (ED) Additional Instructions: Your symptoms are likely due to a viral illness, which is not treated with antibiotics. Typically viral infections last 7-10 days, can linger for couple of weeks. It is very important to treat your symptoms. Drink plenty of water, Gatorade, Pedialyte, ice pops or Jell-O. -Alternate Tylenol and Motrin per package directions for fever or pain. You can alternate every 4 hours -Antihistamine medication such as Zyrtec/Claritin during the day can help improve symptoms. -doing daily nasal irrigations can help relieve pressure your sinuses. Things like a Neti pot -Use Flonase twice a day for 5 days then daily to help reduce the inflammation and dry up your sinuses. -You can also use Coricidin HBP HBP or Mucinex. Be sure to drink plenty of water with this medication at least 8 ounces with every dose and it is important to drink 8 to 10 glasses of water per day. Water is a natural decongestant -Eat and drink things that are easy to swallow, like tea or soup, or popsicles. -Oral rinses such as: Salt water gargles and/or may use topical anesthetic (eg. Chloraseptic spray) or lozenges to relieve dryness or throat pain). -Frequent hand washing or hand giving officer is one of the best ways to prevent spread of infection. -Using a vaporizer or humidifier at night will also help thin secretions and help with coughing up phlegm. -Follow up with primary care provider in 7-10 days if condition is not improving - For new or worsening symptoms go directly to the nearest ER Patient Language: Nepali Prescriptions: No Action folic acid 1 mg tablet losartan 25 mg tablet 25 mg PO DAILY aspirin 81 mg Tablet 81 mg PO DAILY cyanocobalamin (vitamin B-12) 1,000 mcg Tablet 1,000 mcg PO DAILY metformin 1,000 mg Tablet 1,000 mg PO BID magnesium 250 mg Tablet 250 mg PO DAILY metoprolol succinate 25 mg tablet extended release 24 hr 25 mg PO DAILY loratadine [Allergy Relief (loratadine)] 10 mg Tablet 10 mg PO DAILY rosuvastatin 20 mg Tablet 20 mg PO DAILY Xarelto 20 mg Tablet 20 mg PO QPM Rx Instructions: must administer with evening meal PreserVision AREDS-2 250-90-40-1 mg Capsule 1 tablet PO BID Cinnamon 0.5 tsp PO DAILY Follow-up/Referrals: Toy,Brett Puckett MD [Primary Care Provider, Unknown] - 2 Weeks Clinical Impression: Upper respiratory infection; Rhinorrhea Time of Disposition: 15:38
[2025-03-10 15:35] LABS: EDCOVIDSCREEN Negative (Negative); EDINFLUASCREEN Negative (Negative); EDINFLUBSCREEN Negative (Negative)
== END 2025-03-10 15:44 | disposition home or self-care (01) ==
PROVIDERS: Emergency Provider Nurse Practitioner; PCP Family Medicine
DX: J06.9 Acute upper respiratory infection, unspecified (principal); J34.89 Other specified disorders of nose and nasal sinuses; Z20.822 Contact with and (suspected) exposure to COVID-19; I25.10 Atherosclerotic heart disease of native coronary artery without angina pectoris; E78.2 Mixed hyperlipidemia; E88.810 Metabolic syndrome; I49.5 Sick sinus syndrome; Z95.0 Presence of cardiac pacemaker; Z79.82 Long term (current) use of aspirin; Z79.01 Long term (current) use of anticoagulants
CPT/HCPCS: 87426; 87804; 99212; G0463